=== PATIENT | female | born 1985 | race Caucasian/White ===

== ENCOUNTER 2017-03-25 13:16 | Emergency (ER) | payer OTHER ==
[~2017-03-25] VITALS: Ht 154.9 cm; Wt 70.3 kg
[2017-03-25 14:44] VITALS: BP 137/95
== END 2017-03-25 14:52 | disposition home or self-care (01) ==
LOC: M ED 14:25
DX: H65.01 Acute serous otitis media, right ear (principal); F17.210 Nicotine dependence, cigarettes, uncomplicated

== ENCOUNTER 2017-12-20 12:39 | Emergency (ER) | payer OTHER | END 2017-12-20 13:29 | disposition home or self-care (01) | LOC: M ED 12:39 | DX: J40 Bronchitis, not specified as acute or chronic (principal); J30.89 Other allergic rhinitis; Z97.5 Presence of (intrauterine) contraceptive device; F17.210 Nicotine dependence, cigarettes, uncomplicated | CPT/HCPCS: 99282 ==

== ENCOUNTER → 2020-07-27 | Outpatient (REF) | payer OTHER, SELFPAY ==
[~2020-07-27] MED LIST: CEFD1CAP8 PO; FLON1SPR; IBUPOTC PO; MIRE1IUD IU; NORT25CA2; PENI500T OR; ROBI30SU PO
== END ==
LOC: M SFHCWAGY 13:09
PROVIDERS: ATTEND Nurse Practitioner Women's Health
DX: Z12.4 Encounter for screening for malignant neoplasm of cervix (principal)
CPT/HCPCS: 87624; G0123

== ENCOUNTER → 2021-03-02 | Outpatient (REF) | payer BC | LOC: M SFHCPLAZ 12:40 | PROVIDERS: ATTEND Family Medicine | DX: Z13.1 Encounter for screening for diabetes mellitus (principal); Z53.8 Procedure and treatment not carried out for other reasons ==

== ENCOUNTER → 2021-04-04 | Outpatient (REF) | payer BC | LOC: M SFHCPLAZ 08:39 | PROVIDERS: ATTEND Family Medicine | DX: Z13.1 Encounter for screening for diabetes mellitus (principal); Z79.899 Other long term (current) drug therapy ==

== ENCOUNTER → 2021-04-24 | Outpatient (REF) | payer BC | LOC: M SFHCPLAZ 13:59 | PROVIDERS: ATTEND Family Medicine | DX: R10.12 Left upper quadrant pain (principal) ==

== ENCOUNTER → 2021-04-25 | Outpatient (REF) | payer BC ==
[2021-04-25 11:13] LABS: BLOOD UREA NITROGEN 7 MG/DL (7-18); CREATININE FOR GFR 0.63 MG/DL (0.55-1.30); GLUCOSE, FASTING 109 MG/DL (70-100)
[2021-04-25 11:14] LABS: ALT/SGPT 46 U/L (12-78); BILIRUBIN,TOTAL 0.4 MG/DL (0.2-1.0); CALCIUM LEVEL 9.1 MG/DL (8.5-10.1); CARBON DIOXIDE LEVEL 27 MEQ/L (21-32); CHLORIDE LEVEL 109 MEQ/L (98-107); GLOMERULAR FILTRATION RATE > 60.0 (>60); LIPASE 195 U/L (73-393); POTASSIUM SERUM 4.4 MEQ/L (3.5-5.1); SODIUM LEVEL 139 MEQ/L (136-145); TOTAL PROTEIN 7.4 GM/DL (6.4-8.2)
[2021-04-25 12:00] LABS: H PYLORI QUALITATIVE IgG NEGATIVE (NEGATIVE)
== END ==
LOC: M SFHCPLAZ 08:51
PROVIDERS: ATTEND Family Medicine
DX: R10.12 Left upper quadrant pain (principal)

== ENCOUNTER 2021-05-30 14:03 | Emergency (ER) | payer BC ==
[~2021-05-30] VITALS: Ht 154.9 cm; Wt 75.4 kg
[~2021-05-30 14:03] MED LIST changes: -OMEP-221 PO; -SUCR1TAB56 PO
[2021-05-30] MEDS ORDERED: SUCR1TAB56 PO (14:11)
[2021-05-30] MEDS ORDERED: OMEP-221 PO (14:11)
[2021-05-30 16:15] LABS: BASO # 0.1 10^3/uL (0.0-0.2); BASO % 0.5 % (0.0-1.0); EOS # 0.3 10^3/uL (0.0-0.5); EOS % 2.7 % (0.0-3.0); HEMATOCRIT 46.6 % (36.0-47.0); HEMOGLOBIN 15.9 g/dl (12.0-15.5); LYMPH # 2.4 10^3/uL (1.5-5.0); MEAN CORPUSCULAR HEMOGLOBIN 32.5 pg (27.0-33.0); MEAN CORPUSCULAR HGB CONC 34.1 g/dl (32.0-36.5); MEAN CORPUSCULAR VOLUME 95.3 fl (80.0-96.0); MONO # 0.6 10^3/uL (0.0-0.8); MONO % 5.3 % (2.0-8.0); NEUTROPHILS # 8.6 10^3/uL (1.5-8.5); NEUTROPHILS % 71.1 % (36.0-66.0); PLATELET COUNT, AUTOMATED 257 10^3/uL (150-450); RED BLOOD COUNT 4.89 10^6/uL (4.00-5.40)
[2021-05-30] MEDS ORDERED: DICYCLOMINE 10 MG CAP PO ONE (16:30)
[2021-05-30] MEDS ORDERED: ISOVUE-370 76% 100ML VIAL As Ordered ONE (16:32)
[2021-05-30 16:35] LABS: ALBUMIN 4.4 GM/DL (3.2-5.2); BILIRUBIN,DIRECT 0.1 MG/DL (0.0-0.2); BILIRUBIN,TOTAL 0.4 MG/DL (0.2-1.0); TOTAL PROTEIN 7.8 GM/DL (6.4-8.2)
--- NOTE | 2021-05-30 17:03 | REP ---
INDICATION: upper abd pain x months, no change with meds. COMPARISON: 07/23/2015 TECHNIQUE: Bolus of 100 mL Isovue 370 scanning through the abdomen and pelvis with both coronal and sagittal reconstructions. FINDINGS: CT abdomen: The lung bases are well inflated and clear. Heart size not enlarged. There is no pericardial effusion or thickening. There is no hiatal hernia. The liver is not enlarged but has an elongated left lobe crossing to the left lateral abdominal wall covering the superior pole of the spleen. No intrahepatic biliary dilatation or focal hepatic mass. Gallbladder shows no calcified stone or mass. Pancreas without mass, ductal dilatation, abnormal calcification, peripancreatic fluid or adenopathy. No splenomegaly or focal splenic lesion. Adrenal glands are normal. Kidneys show symmetric enhancement and are without mass, stone, hydronephrosis or hydroureter there is no pathologic periaortic, other retroperitoneal or mesenteric lymphadenopathy with scattered normal size nodes in the usual distribution. Abdominal portion of the colon shows no sign of colitis, diverticulitis, stricture or mass appendix is seen and normal. There is no ventral hernia. Umbilical jewelry noted small bowel loops in the abdomen and pelvis were unremarkable lung window review of all CT slices shows no perforation or free air of the bone windows demonstrate minor thoracic spondylosis without acute finding in the spine or the posterior elements. Lower ribs were intact. CT pelvis: The bony sacrum shows no discrete finding. 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 Remainder of the iliac bones acetabulae, ischia and hips are unremarkable. The distal left colon, sigmoid and rectum show collapse. Wall thickening could be considered but I do not see inflammatory change in the pericolonic fat that would define colitis. No sign of diverticulosis or diverticulitis. Uterus anteverted and not enlarged. There is an IUD within it centrally. No pelvic mass or adenopathy. No pelvic mass with symmetric adnexa. Small bowel loops in the pelvis were unremarkable to the ileocecal valve. No pelvic or inguinal lymphadenopathy. No ventral or inguinal hernia. Bladder shows no wall thickening, mass or stone and there is no distal ureteral dilatation or stone. IMPRESSION: 1. No CT evidence of abnormalities of the solid organs of the upper abdomen with the gallbladder and stomach also unremarkable. Small bowel loops intact throughout. 2. Abdominal portions of the colon unremarkable with the distal left colon and sigmoid collapsed. Wall thickness difficult to profile trimmer. However there is no inflammatory change in the pericolonic fat that would suggest colitis at this time. There is no diverticulosis or diverticulitis. Appendix normal. 3. No abdominal or pelvic pathologic sized lymphadenopathy. 4. No renal, ureteral or bladder stone or hydronephrosis. 5. IUD in place in the pelvis. Symmetric adnexa. Bones intact. No acute finding. <Electronically signed by Murali Calix > 05/30/21 [id number]
[2021-05-30 18:43] VITALS: BP 132/78
== END 2021-05-30 18:45 | disposition home or self-care (01) ==
LOC: M ED 14:03
DX: R10.9 Unspecified abdominal pain (principal); Z79.899 Other long term (current) drug therapy; F17.210 Nicotine dependence, cigarettes, uncomplicated
CPT/HCPCS: 36415; 74177; 80047; 80076; 83690; 84702; 85025; 99284; Q9967

== ENCOUNTER → 2021-05-30 | Outpatient (REF) | payer BC ==
[~2021-05-30] MED LIST changes: +OMEP-221 PO; +SUCR1TAB56 PO
== END ==
LOC: M SFHCPLAZ 13:06
PROVIDERS: ATTEND Student in an Organized Health Care Education/Training Program
DX: R10.84 Generalized abdominal pain (principal)

== ENCOUNTER 2021-06-03 22:10 | Observation (INO) | payer BC ==
[~2021-06-03] VITALS: Ht 154.9 cm; Wt 72.7 kg
[~2021-06-03 22:10] MED LIST changes: +OMEP-221 PO; +SUCR1TAB56 PO
[2021-06-03 22:52] LABS: BASO # 0.1 10^3/uL (0.0-0.2); BASO % 0.4 % (0.0-1.0); EOS # 0.6 10^3/uL (0.0-0.5); EOS % 5.1 % (0.0-3.0); HEMATOCRIT 45.3 % (36.0-47.0); HEMOGLOBIN 15.1 g/dl (12.0-15.5); LYMPH # 2.8 10^3/uL (1.5-5.0); LYMPH % 24.4 % (24.0-44.0); MEAN CORPUSCULAR HEMOGLOBIN 32.2 pg (27.0-33.0); MEAN CORPUSCULAR HGB CONC 33.3 g/dl (32.0-36.5); MEAN CORPUSCULAR VOLUME 96.6 fl (80.0-96.0); MONO # 0.7 10^3/uL (0.0-0.8); MONO % 5.8 % (2.0-8.0); NEUTROPHILS # 7.4 10^3/uL (1.5-8.5); PLATELET COUNT, AUTOMATED 242 10^3/uL (150-450); RED BLOOD COUNT 4.69 10^6/uL (4.00-5.40); WHITE BLOOD COUNT 11.6 10^3/uL (4.0-10.0)
[2021-06-03 23:03] LABS: INR 0.84; PROTHROMBIN TIME 11.7 SECONDS (12.5-14.3)
[2021-06-03 23:04] LABS: PARTIAL THROMBOPLASTIN TIME 31.8 SECONDS (24.2-38.5)
[2021-06-03 23:18] LABS: CK-MB VALUE MASS < 1.0 NG/ML (<3.6); CPK CREATINE PHOSPHOKINASE 46 U/L (26-192); MB/CK RELATIVE INDEX 2.17 (< OR =4); TROPONIN I < 0.02 NG/ML (< 0.10)
[2021-06-03 23:24] LABS: HCG, SERUM QUALITATIVE NEGATIVE (NEGATIVE)
--- NOTE | 2021-06-03 23:36 | REPVR ---
PROCEDURE INFORMATION: Exam: CT Head Without Contrast Exam date and time: 06/03/2021 11:29 PM Age: 36 years old Clinical indication: Weakness, extremity; Left; Additional info: Neuro symptoms TECHNIQUE: Imaging protocol: Computed tomography of the head without contrast. Radiation optimization: All CT scans at this facility use at least one of these dose optimization techniques: automated exposure control; mA and/or kV adjustment per patient size (includes targeted exams where dose is matched to clinical indication); or iterative reconstruction. Other technique: STROKE PROTOCOL was implemented. COMPARISON: No relevant prior studies available. FINDINGS: Brain: No intracranial mass, mass effect or midline shift. No acute intracranial hemorrhage. No CT evidence of acute cortical infarct. Ventricles, cisterns, and sulci are normal in size for age. Paranasal sinuses: Imaged paranasal sinuses are normally aerated. Mastoid air cells: Mastoid air cells and middle ear structures are normally aerated. Orbital cavity: Imaged orbits are unremarkable. Bones/joints: No calvarial fracture or destructive process. Soft tissues: No focal extracranial soft tissue swelling. IMPRESSION: No acute or concerning focal intracranial abnormality. ASSESSMENT: ASPECTS ([place] Stroke Program Early CT Score) is 10. Electronically signed by: Rod Etienne On 06/03/2021 23:36:35 PM
[2021-06-03 23:46] LABS: ALBUMIN 4.1 GM/DL (3.2-5.2); ALT/SGPT 46 U/L (12-78); BILIRUBIN,DIRECT < 0.1 MG/DL (0.0-0.2); BILIRUBIN,TOTAL 0.2 MG/DL (0.2-1.0); BLOOD UREA NITROGEN 9 MG/DL (7-18); CALCIUM LEVEL 8.9 MG/DL (8.5-10.1); CARBON DIOXIDE LEVEL 24 MEQ/L (21-32); CHLORIDE LEVEL 109 MEQ/L (98-107); FREE T4 0.84 NG/DL (0.76-1.46); GLOMERULAR FILTRATION RATE > 60.0 (>60); GLUCOSE, FASTING 124 MG/DL (70-100); POTASSIUM SERUM 3.9 MEQ/L (3.5-5.1); SODIUM LEVEL 141 MEQ/L (136-145); TOTAL PROTEIN 7.5 GM/DL (6.4-8.2)
--- NOTE | 2021-06-04 00:09 | REPVR ---
PROCEDURE INFORMATION: Exam: XR Chest Exam date and time: 06/03/2021 11:54 PM Age: 36 years old Clinical indication: Other: CVA TECHNIQUE: Imaging protocol: XR of the chest. Views: 1 view. COMPARISON: CT ABD/PEL W/IV CONTRAST ONLY 05/30/2021 4:35 PM FINDINGS: Lungs: Degree of lung inflation is normal. No evidence of pulmonary edema. No focal consolidation or parenchymal lung mass. Pleural spaces: No pleural effusion or pneumothorax. Heart/Mediastinum: Cardiac silhouette appears normal. No adenopathy or hilar mass. Bones/joints: Osseous structures show no concerning abnormality. IMPRESSION: No acute or focal cardiopulmonary process. Electronically signed by: Rod Etienne On 06/04/2021 00:09:20 AM
[2021-06-04] MEDS ORDERED: ASPIRIN 325 MG TAB PO ONE (00:20)
[2021-06-04] MEDS ORDERED: IBUPROFEN 400MG TAB PO SCH (00:30)
[2021-06-04] MEDS ORDERED: ACETAMINOPHEN TAB 650MG DOSE (2X325MG) PO PRN (00:30)
[2021-06-04] MEDS ORDERED: METOCLOPRAMIDE INJ 10MG/2ML VIAL (J2765 PER 1) IV PRN (00:30)
[2021-06-04] MEDS ORDERED: HOME MED LIST COMPLETE! XX SCH (01:00)
[2021-06-04] MEDS ORDERED: METOCLOPRAMIDE INJ 10MG/2ML VIAL (J2765 PER 1) IV ONE (01:15)
[2021-06-04] MEDS ORDERED: KETOROLAC 30 MG/ML 1ML VIAL IV ONE (01:15)
[2021-06-04] MEDS ORDERED: ACETAMINOPHEN 500 MG TAB PO ONE (01:15)
--- NOTE | 2021-06-04 01:30 | HPEPDOC ---
[facility] Medical History & Physical Date of Admission Jun 04, 2021 Date of Service: Jun 04, 2021 History and Physical CHIEF COMPLAINT: Left arm numbness at 9:00 PM HISTORY OF PRESENT ILLNESS: 36-year-old female was in her usual state of health with past medical history significant for chronic migraines with daily symptoms presents to the emergency room with acute onset of left arm numbness that started at 9 PM while she was sitting on the couch watching television this then progressed onto whole body with numbness, tingling, and weakness, unable to ambulate. She called her mother at 9:45 PM. According to the mother, patient had no expressive or receptive aphasia. She was able to speak in full sentences. EMS was called. Patient had persistent symptoms until around midnight. Glucose was normal. CT of the head in the emergency room was negative. Patient was given aspirin 325 mg patient. She denied a URA, nausea, vomiting but says that the light bothers her eyes without fever chills or neck rigidity. She admits to having chronic migraines most days of the week and has previously seen Dr. Arce at [facility] neurology but stopped going about 4 years ago because "nothing worked". patient says that she often gets relief from extra strength Tylenol and previously took Excedrin Migraine but she is concerned about her gastritis and had stopped taking the Excedrin Migraine as needed. While in the emergency room patient symptoms improved. Systolic blood pressure at the bedside was 146-173 mmHg. Patient's mother says she has been under a lot of stress since she has had a strained relationship with her ex-, her son's father, who is living in [place]. MRI of the brain has been ordered. She has had no prior episode of these neurological symptoms in the past. She denies any chest pain pressure tightness lightheadedness dizziness and was able to transfer from bed to wheelchair for all her tests in the ER. Patient was given IV Toradol IV Reglan for migraine and acetaminophen hospitalist was asked to admit the patient for observation for possible complex migraine versus transient ischemic attack. PAST MEDICAL/SURGICAL HISTORY: Headache, gastroesophageal reflux disease, torn right meniscus with repair, cervicitis with barholin cyst SOCIAL HISTORY: Single has a son ex- lives in [place]. Full code denies recreational drug use social alcohol no cigarette use FAMILY HISTORY: Paternal grandparents with diabetes Mother father alive and well healthy no medical problems ALLERGIES: Please see below. REVIEW OF SYSTEMS: 10 point review of systems negative aside from positive findings in HPI HOME MEDICATIONS: Please see below. PHYSICAL EXAMINATION: VITAL SIGNS: See below GENERAL APPEARANCE: Anxious and tearful awake alert oriented x3 no distress no icterus pallor jaundice cyanosis or respiratory distress HEENT: Pupils equally round reactive to light accommodation extraocular muscles are intact normocephalic atraumatic face is symmetric tongue is midline moist mucous membranes no carotid bruit stridor cervical lymphadenopathy or thyromega ly no JVD CARDIOVASCULAR: S1-S2 regular rate rhythm no murmurs rubs or gallops LUNGS: No kyphosis no scoliosis air entry is equal bilaterally no adventitious breath sounds clear to auscultation bilaterally no use of respiratory accessory muscles or conversational dyspnea trachea is midline no stridor ABDOMEN: Positive normoactive bowel sounds soft nontender nondistended no rebound or guarding EXTREMITIES: No cyanosis clubbing or pitting edema NEUROLOGIC: Face is symmetric tongue is midline speech is fluent no receptive or expressive aphasia uvula is midline motor function is 5 out of 5 x 4 extremities no pronator drift no dysmetria on [id number] testing no sensory disturbance negative Babinski bilaterally gait was not tested stroke scale 0 LABORATORY DATA: See below. IMAGING: See below MICROBIOLOGY: Please see below. ASSESSMENT: 36-year-old female with history of chronic headache previously seen at [facility] neurology but lost to follow-up for about 4 years presents with acute onset of left arm numbness which progressed to the whole body with tingling sensation at around 9 PM with difficulty ambulating. Symptoms improved in the emergency room where she also complained of headache and slight photophobia without fever or chills glucose was normal on arrival CT head was negative patient was given aspirin 325 hospitalist was asked to admit the patient for possible complex migraine versus transient ischemic attack for observation. TIA versus complex migraine -Patient was given aspirin 325x1 . check fasting lipid profile in the morning MRI/MRA of the brain ordered -Dr. DUNBAR ER provider had spoken with Dr. SYED who recommended observation overnight and MRI of the brain -Neurochecks every 4 for 12 hours Migraine -Patient was given IV Reglan IV Toradol and acetaminophen Hypertension, uncontrolled Secondary to headache Patient is being treated for migraines with IV Reglan Toradol and acetaminophen Patient has had increasing stressors especially her personal relationship with her ex- which the mother says has caused her blood pressure to increase at home If persistently elevated may need antihypertensive meds Gastroesophageal reflux disease Resume Prilosec and Carafate Diet 2 g sodium Obesity Check A1c TSH and lipid panel DVT prophylaxis compression stockings Vital Signs Vital Signs Date Time Temp Pulse Resp B/P (MAP) Pulse Ox O2 Delivery O2 Flow Rate FiO2 06/03/21 23:27 97.4 20 98 Room Air 06/03/21 23:00 172/94 (120) 06/03/21 22:55 83 Laboratory Data Labs 24H Laboratory Tests 2 06/03/21 22:36: Immature Granulocyte % (Auto) 0.3, Neutrophils (%) (Auto) 64.0, Lymphocytes (%) (Auto) 24.4, Monocytes (%) (Auto) 5.8, Eosinophils (%) (Auto) 5.1H, Basophils (%) (Auto) 0.4, Neutrophils # (Auto) 7.4, Lymphocytes # (Auto) 2.8, Monocytes # (Auto) 0.7, Eosinophils # (Auto) 0.6H, Basophils # (Auto) 0.1, Nucleated Red Blood Cells % (auto) 0.0, Prothrombin Time 11.7L, Prothromb Time International Ratio 0.84, Activated Partial Thromboplast Time 31.8, Anion Gap 8, Glomerular Filtration Rate > 60.0, Calcium Level 8.9, Total Bilirubin 0.2, Direct Bilirubin < 0.1, Aspartate Amino Transf (AST/SGOT) 31, Alanine Aminotransferase (ALT/SGPT) 46, Alkaline Phosphatase 68, Total Creatine Kinase 46, Creatine Kinase MB < 1.0, Creatine Kinase MB Relative Index 2.17, Troponin I < 0.02, Total Protein 7.5, Albumin 4.1, Albumin/Globulin Ratio 1.2, Thyroid Stimulating Hormone (TSH) 5.480H, Free Thyroxine 0.84, Human Chorionic Gonadotropin, Qual NEGATIVE 06/03/21 22:48: POC Glucose (Misc Panel) 126H, POC Sodium (Misc Panel) 142, POC Potassium (Misc Panel) 3.7, POC Chloride (Misc Panel) 105, POC Total CO2 (Misc Panel) 23.0, POC Blood Urea Nitrogen (Misc Panel 9, POC Ionized Calcium (Misc Panel) 4.7, POC Creatinine (Misc Panel) 0.7, POC Hematocrit (Misc Panel) 47.0 CBC/BMP Laboratory Tests 06/03/21 22:36 Home Medications Scheduled Omeprazole (Omeprazole) 40 Mg Capsule.dr, 40 MG PO DAILY Sucralfate (Sucralfate) 1 Gm Tablet, 1 GM PO QID Miscellaneous Medications Levonorgestrel (Mirena) 20 Mcg/24 Hr Iud, 20 MCG IU Allergies Coded Allergies: No Known Drug Allergies (Verified Allergy, Unknown, 05/30/21) SEASONAL ALLERGIES (Verified Allergy, Unknown, 02/17/18) A-FIB/CHADSVASC A-FIB History Current/History of A-Fib/PAF?: No Current PO Anticoag Therapy: No Age/Risk Factor Scoring CHADSVASC: CHADSVASC Response (Comments) Value Age Risk Factor Age < 65 years old 0 Gender Risk Factor Female 1 Hx of CHF No 0 Hx of Stroke/TIA/or VTE No 0 Hx of Diabetes No 0 Hx of Vascular Disease No 0 Total 1 Treatment Treatment ordered: NONE NICOLAS HARVEY MD Jun 04, 2021 01:30
[2021-06-04 02:47] LABS: RSV AMPLIFICATION NEGATIVE (NEGATIVE)
[2021-06-04] MEDS ORDERED: KETOROLAC 30 MG/ML 1ML VIAL IV PRN (07:00)
[2021-06-04] MEDS ORDERED: SUCRALFATE 1 GM TAB PO SCH (07:30)
[2021-06-04 08:27] LABS: CHOLESTEROL RISK RATIO 6.552 (<5)
[2021-06-04] MEDS ORDERED: OMEPRAZOLE 20 MG CAP PO SCH (09:00)
--- NOTE | 2021-06-04 10:23 | REPVR ---
PROCEDURE INFORMATION: Exam: MRA Head Without Contrast; Arteriography Exam date and time: 06/04/2021 7:58 AM Age: 36 years old Clinical indication: Weakness; Additional info: CVA TECHNIQUE: Imaging protocol: Magnetic resonance angiography head without contrast. Exam focused on the arteries. COMPARISON: CT Head without contrast 06/03/2021 11:06 PM FINDINGS: ANTERIOR CIRCULATION: Right internal carotid artery: Intracranial segment is patent with no significant stenosis. No aneurysm. Right middle cerebral artery: No occlusion or significant stenosis. No aneurysm. Right anterior cerebral artery: No occlusion or significant stenosis. No aneurysm. Left internal carotid artery: Intracranial segment is patent with no significant stenosis. No aneurysm. Left middle cerebral artery: No occlusion or significant stenosis. No aneurysm. Left anterior cerebral artery: No occlusion or significant stenosis. No aneurysm. POSTERIOR CIRCULATION: Right vertebral artery: No occlusion or significant stenosis. No aneurysm. Left vertebral artery: No occlusion or significant stenosis. No aneurysm. Basilar artery: No occlusion or significant stenosis. No aneurysm. Right posterior cerebral artery: No occlusion or significant stenosis. No aneurysm. Left posterior cerebral artery: No occlusion or significant stenosis. No aneurysm. IMPRESSION: No stenosis or occlusion. Electronically signed by: Fernandez Jiménez On 06/04/2021 08:33:07 AM
--- NOTE | 2021-06-04 10:23 | REPVR ---
PROCEDURE INFORMATION: Exam: MR Head Without Contrast Exam date and time: 06/04/2021 7:58 AM Age: 36 years old Clinical indication: Numbness / parasthesia; Bilateral; Patient HX: Body numbness; Additional info: CVA TECHNIQUE: Imaging protocol: MR of the head without contrast. COMPARISON: CT Head without contrast 06/03/2021 11:06 PM FINDINGS: Brain: Normal. No acute infarct. No hemorrhage. No significant white matter disease. No edema. Cerebral ventricles: Normal. No ventriculomegaly. Bones/joints: Unremarkable. Paranasal sinuses: Limited paranasal sinus disease without air-fluid levels. Mastoid air cells: Normal as visualized. No mastoid effusion. Orbital cavity: Unremarkable. Soft tissues: Unremarkable. IMPRESSION: No acute intracranial abnormality. Electronically signed by: Fernandez Jiménez On 06/04/2021 08:35:51 AM
--- NOTE | 2021-06-04 10:24 | DS.PDOC ---
Discharge Summary General Date of Admission Jun 03, 2021 at 22:11 Date of Discharge 06/04/21 Attending Physician: JORGE CARMONA DO Discharge Summary PROCEDURES PERFORMED DURING STAY: N/A ADMITTING DIAGNOSES: 1. Complex migraine vs TIA DISCHARGE DIAGNOSES: 1. Complex migraine COMPLICATIONS/CHIEF COMPLAINT: generalized numbness/tingling and weakness HISTORY OF PRESENT ILLNESS: Yael is 36F w/ PMH chronic migraines who presented to ED by EMS 06/03/21 w/ acute onset generalized numbness/tingling that began in her LUE and quickly progressed throughout her body. Reported photoph obia w/out fevers/chills, n/v, neck rigidity. She also had elevated BP (systolic 146-173) and significant weakness w/ difficulty ambulating. Reported new acute stressors at home. CXR and CT head performed in ED 06/03/21 unremarkable. Pt began IV Reglan, IV Toradol, Acetaminophen for migraine w/ significant improvement. Neuro exam unremarkable and neuro checks Q4-12hrs unconcerning. HOSPITAL COURSE: Admission order placed for obs. Pt reported resolution of sx, including elevated BP, prior to transfer to floor. MRI brain performed 06/04/21 unremarkable. Lipid profile significant for total cholesterol 249, LDL 188. DISCHARGE MEDICATIONS: Please see below. ALLERGIES: Please see below. PHYSICAL EXAMINATION ON DISCHARGE: VITAL SIGNS: Please see below. GENERAL: no acute distress, sitting up in bed HEENT: AC/NT, EOMI, PERRLA, moist mucous membranes, nares patent NECK: supple, no JVD CARDIOVASCULAR EXAMINATION: normal heart sounds, RRR, no M/R/G RESPIRATORY EXAMINATION: CTA b/l, no W/R/R ABDOMINAL EXAMINATION: soft, nontender, hypoactive BS EXTREMITIES: no edema, normal ROM SKIN: no rashes, abrasions, lesions NEUROLOGICAL EXAMINATION: CNIII-XII intact, no FND, motor strength 5/5 PSYCHIATRIC EXAMINATION: AOx3, appropriate mood/affect LABORATORY DATA: Please see below. IMAGING: CXR 06/03/21- No acute or focal cardiopulmonary process. CT head 06/03/21- No acute or concerning focal intracranial abnormality. MRI brain 06/04/21- No acute intracranial abnormality. MRA brain 06/04/2021-no stenosis or occlusion PROGNOSIS: good ACTIVITY: As tolerated DIET: As tolerated, low cholesterol DISCHARGE PLAN: Complex migraine F/u PCP, 7-10 days F/u neurology, 2wks Tobacco abuse Pt counseled on importance of tobacco cessation Elevated triglycerides Pt counseled on importance of lifestyle modifications, given current risk factors. Pt agreeable and verbalized understanding. ASCVD risk 8.7% DISPOSITION: home DISCHARGE INSTRUCTIONS: 1. F/u w/ PCP, 7-10 days 2. F/u w/ neurology, 2wks 3. Lifestyle modifications as discussed DISCHARGE CONDITION: Stable TIME SPENT ON DISCHARGE: 20 minutes I, Jorge Carmona DO, have independently examined this patient and performed my own physical exam, as well as reviewed the documentation and edited where necessary. I have discussed in detail with the resident / student the findings and plan of treatment as documented by the resident / student and edited their note. I agree with their findings and treatment plan and have edited their documentation. I will continue to follow the patient during this hospital stay. Vital Signs/I&Os Vital Signs Date Time Temp Pulse Resp B/P (MAP) Pulse Ox O2 Delivery O2 Flow Rate FiO2 06/04/21 06:00 63 18 138/71 (93) 94 Room Air 06/03/21 23:27 97.4 Laboratory Data Labs 24H Laboratory Tests 2 06/03/21 22:36: Immature Granulocyte % (Auto) 0.3, Neutrophils (%) (Auto) 64.0, Lymphocytes (%) (Auto) 24.4, Monocytes (%) (Auto) 5.8, Eosinophils (%) (Auto) 5.1H, Basophils (%) (Auto) 0.4, Neutrophils # (Auto) 7.4, Lymphocytes # (Auto) 2.8, Monocytes # (Auto) 0.7, Eosinophils # (Auto) 0.6H, Basophils # (Auto) 0.1, Nucleated Red Blood Cells % (auto) 0.0, Prothrombin Time 11.7L, Prothromb Time International Ratio 0.84, Activated Partial Thromboplast Time 31.8, Anion Gap 8, Glomerular Filtration Rate > 60.0, Calcium Level 8.9, Total Bilirubin 0.2, Direct Bilirubin < 0.1, Aspartate Amino Transf (AST/SGOT) 31, Alanine Aminotransferase (ALT/SGPT) 46, Alkaline Phosphatase 68, Total Creatine Kinase 46, Creatine Kinase MB < 1.0, Creatine Kinase MB Relative Index 2.17, Troponin I < 0.02, Total Protein 7.5, Albumin 4.1, Albumin/Globulin Ratio 1.2, Thyroid Stimulating Hormone (TSH) 5.480H, Free Thyroxine 0.84, Human Chorionic Gonadotropin, Qual NEGATIVE 06/03/21 22:48: POC Glucose (Misc Panel) 126H, POC Sodium (Misc Panel) 142, POC Potassium (Misc Panel) 3.7, POC Chloride (Misc Panel) 105, POC Total CO2 (Misc Panel) 23.0, POC Blood Urea Nitrogen (Misc Panel 9, POC Ionized Calcium (Misc Panel) 4.7, POC Creatinine (Misc Panel) 0.7, POC Hematocrit (Misc Panel) 47.0 06/04/21 02:02: Coronavirus (COVID-19)(PCR) NEGATIVE, Influenza Type A (RT-PCR) NEGATIVE, Influenza Type B (RT-PCR) NEGATIVE, Respiratory Syncytial Virus (PCR) NEGATIVE 06/04/21 07:47: Triglycerides Level 117, Total Cholesterol 249H, LDL Cholesterol 188H, Non-HDL Cholesterol (LDL + VLDL) 211, Total HDL Cholesterol 38L, Cholesterol/HDL Ratio 6.552H CBC/BMP Laboratory Tests 06/03/21 22:36 Discharge Medications Scheduled Omeprazole (Omeprazole) 40 Mg Capsule.dr, 40 MG PO DAILY, (Reported) Sucralfate (Sucralfate) 1 Gm Tablet, 1 GM PO QID, (Reported) Miscellaneous Medications Levonorgestrel (Mirena) 20 Mcg/24 Hr Iud, 20 MCG IU, (Reported) Allergies Coded Allergies: No Known Drug Allergies (Verified Allergy, Unknown, 05/30/21) SEASONAL ALLERGIES (Verified Allergy, Unknown, 02/17/18) Rebeka Grant DO Jun 04, 2021 10:24 JORGE CARMONA DO Jun 04, 2021 18:19
[2021-06-04 10:47] LABS: HEMOGLOBIN A1c 5.3 %
[2021-06-04 11:48] VITALS: BP 145/90
--- NOTE | 2021-06-04 20:32 | ECGEPIP ---
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
== END 2021-06-04 12:22 | disposition home or self-care (01) ==
LOC: M ED 22:10 → M ED INP 22:11 → ENRESERV 06-04 06:06
PROVIDERS: ADMIT General Practice; ATTEND Family Medicine
DX: G43.809 Other migraine, not intractable, without status migrainosus (principal); R03.0 Elevated blood-pressure reading, without diagnosis of hypertension; E78.1 Pure hyperglyceridemia; G43.709 Chronic migraine without aura, not intractable, without status migrainosus; K21.9 Gastro-esophageal reflux disease without esophagitis; Z63.5 Disruption of family by separation and divorce; E66.9 Obesity, unspecified; F17.210 Nicotine dependence, cigarettes, uncomplicated; Z79.899 Other long term (current) drug therapy; J30.1 Allergic rhinitis due to pollen
CPT/HCPCS: 36415; 70450; 70544; 70551; 71045; 80047; 80048; 80061; 80076; 82550; 82553; 83036; 84439; 84443; 84484; 84703; 85025; 85610; 85730; 87631; 93005; 93041; 94760; 96374; 96375; 99285; J1885; J2765

== ENCOUNTER → 2021-07-13 | Outpatient (CLI) | payer BC ==
--- NOTE | 2021-07-13 09:40 | REP ---
INDICATION: RUQ PAIN COMPARISON: None. TECHNIQUE: Real time estrada scale ultrasound examination using curved array transducer. FINDINGS: Liver is normal in contour, size, and echogenicity without focal hepatic lesions identified. Pancreas is incompletely evaluated due to interposed bowel gas. The gallbladder is normal and without gallstones, wall thickening, or pericholecystic fluid. No biliary ductal dilatation is appreciated and the common bile duct measures 4.0 mm diameter. Right kidney is normal in reniform shape without hydronephrosis and measures 11.3 x 5.9 x 4.6 cm. No ascites in the visualized right upper quadrant. IMPRESSION: Normal limited right upper quadrant ultrasound <Electronically signed by Calin Jean Baptiste > 07/13/21 [id number]
== END ==
LOC: M RAD 09:01
PROVIDERS: ATTEND Student in an Organized Health Care Education/Training Program
DX: R10.11 Right upper quadrant pain (principal)

== ENCOUNTER → 2021-10-22 | Outpatient (CLI) | payer BC ==
[~2021-10-22] MED LIST changes: -CEFD1CAP8 PO; +CEFD300C41 PO; +HYOS0.374; -OMEP-221 PO; +OMEP40CA5 PO; +ZYRTTAB8 PO
== END ==
LOC: M LABSMTC 10:40
PROVIDERS: ATTEND Anesthesiology
DX: Z01.818 Encounter for other preprocedural examination (principal); Z11.52 Encounter for screening for COVID-19

== ENCOUNTER 2021-10-26 12:52 | Day surgery (SDC) | payer BC ==
[~2021-10-26] VITALS: Ht 154.9 cm; Wt 75.7 kg
[~2021-10-26 12:52] MED LIST changes: +CEFD1CAP8 PO; -CEFD300C41 PO; +OMEP-221 PO; -OMEP40CA5 PO
[2021-10-26] MEDS: NS 1,000 ML IV ONE (13:12)
[2021-10-26] MEDS ORDERED: METOPROLOL 5 MG/5 ML VIAL As Ordered ONE (14:54)
--- NOTE | 2021-10-26 15:04 | ROOR ---
Patient Name: Yael Obregon Procedure Date: 10/26/2021 2:49 PM Date of : 1985 Age: 36 Room: [facility] Gender: Female Note Status: Finalized Procedure: Upper GI endoscopy Indications: Epigastric abdominal pain, Abdominal bloating Providers: Elijah Hayden MD Referring MD: Mihir Mcmullen Do Requestann Provider: Medicines: Monitored Anesthesia Care Complications: No immediate complications. Procedure: Pre-Anesthesia Assessment: - The heart rate, respiratory rate, oxygen saturations, blood pressure, adequacy of pulmonary ventilation, and response to care were monitored throughout the procedure. The Endoscope was introduced through the mouth, and advanced to the second part of duodenum. The upper GI endoscopy was accomplished without difficulty. The patient tolerated the procedure well. Findings: The esophagus was normal. The stomach was normal. The examined duodenum was normal. Biopsies were taken with a cold forceps in the gastric antrum for histology and Helicobacter pylori testing. Biopsies for histology were taken with a cold forceps in the second portion of the duodenum and in the third portion of the duodenum for evaluation of celiac disease. Impression: - Normal esophagus. - Normal stomach. - Normal examined duodenum. - Biopsies were taken with a cold forceps for histology and Helicobacter pylori testing. - Biopsies were taken with a cold forceps for evaluation of celiac disease. Recommendation: - Telephone endoscopist for pathology results in 2 weeks. - Observe patient's clinical course. - Continue present medications. Procedure Code(s): --- Professional --- 58201, Esophagogastroduodenoscopy, flexible, transoral; with biopsy, single or multiple Diagnosis Code(s): --- Professional --- R14.0, Abdominal distension (gaseous) R10.13, Epigastric pain CPT copyright 2019 [employer]. All rights reserved. The codes documented in this report are preliminary and upon in home baby sitter review may be revised to meet current compliance requirements. Elijah Hayden MD Elijah Hayden MD 10/26/2021 3:04:20 PM Electronically signed by Elijah Hayden MD Number of Addenda: 0 Note Initiated On: 10/26/2021 2:49 PM Estimated Blood Loss: Estimated blood loss: none.
[2021-10-26] MEDS ORDERED: LIDOCAINE 2% 100MG/5ML SDV (FOR ANES.) As Ordered ONE (15:14)
[2021-10-26] MEDS ORDERED: propofoL 200 MG/20 ML VIAL As Ordered ONE (15:14)
[2021-10-26 15:31] VITALS: BP 126/84
== END 2021-10-26 15:42 | disposition home or self-care (01) ==
LOC: M OPP 12:52
PROVIDERS: ATTEND Internal Medicine Gastroenterology
DX: R14.0 Abdominal distension (gaseous) (principal); R10.13 Epigastric pain; Z79.899 Other long term (current) drug therapy; Z88.1 Allergy status to other antibiotic agents; Z92.21 Personal history of antineoplastic chemotherapy; F17.210 Nicotine dependence, cigarettes, uncomplicated; Z80.42 Family history of malignant neoplasm of prostate

== ENCOUNTER → 2021-10-30 | Outpatient (REF) | payer BC | LOC: M SFHCPLAZ 14:16 | PROVIDERS: ATTEND Family Medicine | DX: Z53.20 Procedure and treatment not carried out because of patient's decision for unspecified reasons (principal) ==

== ENCOUNTER → 2021-10-30 | Outpatient (CLI) | payer BC | LOC: M PLALAB 14:24 | PROVIDERS: ATTEND Student in an Organized Health Care Education/Training Program | DX: R00.2 Palpitations (principal) ==

== ENCOUNTER 2021-12-04 21:33 | Emergency (ER) | payer BC ==
[~2021-12-04] VITALS: Ht 154.9 cm; Wt 75.0 kg
[~2021-12-04 21:33] MED LIST changes: -CEFD1CAP8 PO; +CEFD300C41 PO; -OMEP-221 PO; +OMEP40CA5 PO
[2021-12-04 21:35] VITALS: BP 183/104
== END 2021-12-05 00:32 | disposition left against medical advice (07) ==
LOC: M ED 21:33
DX: Z53.29 Procedure and treatment not carried out because of patient's decision for other reasons (principal)

== ENCOUNTER 2021-12-05 11:48 | Emergency (ER) | payer BC ==
[~2021-12-05] VITALS: Ht 154.9 cm; Wt 75.0 kg
[2021-12-05 12:43] LABS: HEMATOCRIT 44.3 % (36.0-47.0); HEMOGLOBIN 14.8 g/dl (12.0-15.5); MEAN CORPUSCULAR HEMOGLOBIN 31.4 pg (27.0-33.0); MEAN CORPUSCULAR HGB CONC 33.4 g/dl (32.0-36.5); MEAN CORPUSCULAR VOLUME 93.9 fl (80.0-96.0); PLATELET COUNT, AUTOMATED 253 10^3/uL (150-450); RED BLOOD COUNT 4.72 10^6/uL (4.00-5.40); WHITE BLOOD COUNT 9.9 10^3/uL (4.0-10.0)
[2021-12-05 13:10] LABS: HCG, SERUM QUALITATIVE NEGATIVE (NEGATIVE)
[2021-12-05 13:11] LABS: CK-MB VALUE MASS < 1.0 NG/ML (<3.6); CPK CREATINE PHOSPHOKINASE 40 U/L (26-192)
[2021-12-05 13:12] LABS: ATYPICAL LYMPH 4 % (0-5); EOSINOPHILS 1 % (0-3); LYMPHOCYTES 15 % (16-44); MONOCYTES 5 % (0-5); NEUTROPHILS 75 % (28-66)
[2021-12-05 13:13] LABS: PLATELET ESTIMATE NORMAL (NORMAL)
[2021-12-05 13:14] LABS: BLOOD UREA NITROGEN 7 MG/DL (7-18); CARBON DIOXIDE LEVEL 26 MEQ/L (21-32); CHLORIDE LEVEL 109 MEQ/L (98-107); CREATININE FOR GFR 0.67 MG/DL (0.55-1.30); GLOMERULAR FILTRATION RATE > 60.0 (>60); GLUCOSE, FASTING 100 MG/DL (70-100); POTASSIUM SERUM 4.1 MEQ/L (3.5-5.1); SODIUM LEVEL 139 MEQ/L (136-145)
[2021-12-05 13:15] LABS: ALBUMIN 4.1 GM/DL (3.2-5.2); ALT/SGPT 40 U/L (12-78); BILIRUBIN,DIRECT 0.1 MG/DL (0.0-0.2); BILIRUBIN,TOTAL 0.3 MG/DL (0.2-1.0); CALCIUM LEVEL 9.3 MG/DL (8.5-10.1); FREE T4 0.94 NG/DL (0.76-1.46); LIPASE 168 U/L (73-393); MAGNESIUM LEVEL 2.3 MG/DL (1.8-2.4); PHOSPHORUS LEVEL 2.4 MG/DL (2.5-4.9); TOTAL PROTEIN 7.6 GM/DL (6.4-8.2)
[2021-12-05] MEDS ORDERED: NS 1,000 ML IV ONE (14:10)
[2021-12-05 14:24] LABS: CK-MB VALUE MASS < 1.0 NG/ML (<3.6); CPK CREATINE PHOSPHOKINASE 68 U/L (26-192); MB/CK RELATIVE INDEX 1.47 (< OR =4)
[2021-12-05 15:30] VITALS: BP 116/71
== END 2021-12-05 16:49 | disposition home or self-care (01) ==
LOC: M ED 11:48
DX: R00.2 Palpitations (principal); R42 Dizziness and giddiness; F17.200 Nicotine dependence, unspecified, uncomplicated; Z88.2 Allergy status to sulfonamides; Z88.8 Allergy status to other drugs, medicaments and biological substances; Z79.899 Other long term (current) drug therapy

== ENCOUNTER → 2022-01-03 | Outpatient (CLI) | payer BC | LOC: M PLAIMG 09:47 | PROVIDERS: ATTEND Student in an Organized Health Care Education/Training Program | DX: M25.562 Pain in left knee (principal) ==

== ENCOUNTER → 2022-07-25 | Outpatient (CLI) | payer BC ==
[2022-07-25 11:11] LABS: BASO # 0.1 10^3/uL (0.0-0.2); BASO % 0.6 % (0.0-1.0); EOS # 0.6 10^3/uL (0.0-0.5); EOS % 4.8 % (0.0-3.0); HEMATOCRIT 45.7 % (36.0-47.0); HEMOGLOBIN 14.7 g/dl (12.0-15.5); LYMPH # 2.4 10^3/uL (1.5-5.0); MEAN CORPUSCULAR HEMOGLOBIN 31.1 pg (27.0-33.0); MEAN CORPUSCULAR HGB CONC 32.2 g/dl (32.0-36.5); MEAN CORPUSCULAR VOLUME 96.8 fl (80.0-96.0); MONO # 0.7 10^3/uL (0.0-0.8); MONO % 5.6 % (2.0-8.0); NEUTROPHILS # 8.4 10^3/uL (1.5-8.5); NEUTROPHILS % 68.7 % (36.0-66.0); PLATELET COUNT, AUTOMATED 258 10^3/uL (150-450); RED BLOOD COUNT 4.72 10^6/uL (4.00-5.40); WHITE BLOOD COUNT 12.2 10^3/uL (4.0-10.0)
[2022-07-25 12:05] LABS: ALBUMIN 3.9 GM/DL (3.2-5.2); ALT/SGPT 40 U/L (12-78); BILIRUBIN,TOTAL 0.4 MG/DL (0.2-1.0); BLOOD UREA NITROGEN 7 MG/DL (7-18); CALCIUM LEVEL 8.9 MG/DL (8.5-10.1); CARBON DIOXIDE LEVEL 28 MEQ/L (21-32); CHLORIDE LEVEL 106 MEQ/L (98-107); CHOLESTEROL LEVEL 240 MG/DL (<200); CHOLESTEROL RISK RATIO 6.486 (<5); FREE T4 0.82 NG/DL (0.76-1.46); GLOMERULAR FILTRATION RATE > 60.0 (>60); GLUCOSE, FASTING 88 MG/DL (70-100); HDL CHOLESTEROL 37 MG/DL (>40); LDL CHOLESTEROL 172 MG/DL (<100); NON-HDL-C 203 MG/DL; POTASSIUM SERUM 4.6 MEQ/L (3.5-5.1); SODIUM LEVEL 138 MEQ/L (136-145); TOTAL PROTEIN 7.2 GM/DL (6.4-8.2); TRIGLYCERIDES LEVEL 153 MG/DL (<150)
[2022-07-25 13:08] LABS: HIV 1&2 SCREEN CENTAUR NEGATIVE (NEGATIVE)
== END ==
LOC: M PLALAB 09:23
PROVIDERS: ATTEND Nurse Practitioner
DX: Z00.00 Encounter for general adult medical examination without abnormal findings (principal)

== ENCOUNTER 2023-07-01 11:12 | Emergency (ER) | payer BC ==
[~2023-07-01] VITALS: Ht 154.9 cm; Wt 79.5 kg
[2023-07-01] MEDS ORDERED: PANT20TA6 PO (11:23)
[2023-07-01] MEDS ORDERED: FLUO10CA18 PO (11:23)
[2023-07-01 12:03] LABS: BASO # 0.1 10^3/uL (0.0-0.2); BASO % 0.4 % (0.0-1.0); EOS # 0.4 10^3/uL (0.0-0.5); EOS % 3.6 % (0.0-3.0); HEMATOCRIT 44.7 % (36.0-47.0); LYMPH # 2.8 10^3/uL (1.5-5.0); LYMPH % 24.4 % (24.0-44.0); MEAN CORPUSCULAR HEMOGLOBIN 31.9 pg (27.0-33.0); MEAN CORPUSCULAR HGB CONC 33.6 g/dl (32.0-36.5); MEAN CORPUSCULAR VOLUME 95.1 fl (80.0-96.0); MONO # 0.7 10^3/uL (0.0-0.8); MONO % 5.7 % (2.0-8.0); NEUTROPHILS # 7.6 10^3/uL (1.5-8.5); NEUTROPHILS % 65.6 % (36.0-66.0); PLATELET COUNT, AUTOMATED 266 10^3/uL (150-450); WHITE BLOOD COUNT 11.6 10^3/uL (4.0-10.0)
[2023-07-01 12:33] LABS: LIPASE 36 U/L (12-53)
[2023-07-01 12:34] LABS: HCG, SERUM QUALITATIVE NEGATIVE (NEGATIVE)
[2023-07-01 12:36] LABS: ALKALINE PHOSPHATASE 92 U/L (46-116); ALT/SGPT 49 U/L (7.0-40); AST/SGOT 23 U/L (<34); BILIRUBIN,DIRECT 0.2 MG/DL (<0.4); BILIRUBIN,TOTAL 0.7 MG/DL (0.3-1.2); BLOOD UREA NITROGEN 10 MG/DL (9-23); CALCIUM LEVEL 9.2 MG/DL (8.5-10.1); CARBON DIOXIDE LEVEL 26 MMOL/L (20-31); CHLORIDE LEVEL 107 MMOL/L (98-107); GLOMERULAR FILTRATION RATE > 60.0 (>60); GLUCOSE, FASTING 98 MG/DL (60-100); POTASSIUM SERUM 4.1 MMOL/L (3.5-5.1); SODIUM LEVEL 140 MMOL/L (136-145); TOTAL PROTEIN 7.3 G/DL (5.7-8.2)
[2023-07-01] MEDS ORDERED: KETOROLAC 30 MG/ML 1ML VIAL IV ONE (12:40)
[2023-07-01] MEDS ORDERED: ISOVUE-370 76% 100ML VIAL As Ordered ONE (12:49)
[2023-07-01] MEDS ORDERED: DICY-61 PO (14:51)
[2023-07-01] MEDS ORDERED: HYDR-3713 PO (14:51)
[2023-07-01 15:00] VITALS: BP 147/84; TEMP 98.2; O2SAT 100
== END 2023-07-01 15:03 | disposition home or self-care (01) ==
LOC: M ED 11:12
DX: R10.11 Right upper quadrant pain (principal); R11.0 Nausea; K21.9 Gastro-esophageal reflux disease without esophagitis; F17.200 Nicotine dependence, unspecified, uncomplicated; Z88.2 Allergy status to sulfonamides
CPT/HCPCS: 74177; 80048; 80076; 81001; 83690; 84703; 85025; 96374; 99284; J1885; Q9967

== ENCOUNTER → 2023-07-04 | Outpatient (CLI) | payer BC ==
[~2023-07-04] MED LIST changes: +DICY-61 PO; +FLUO10CA18 PO; +HYDR-3713 PO; +PANT20TA6 PO
== END ==
LOC: M PLAIMG 08:02
PROVIDERS: ATTEND Physician Assistant
DX: R07.81 Pleurodynia (principal)

== ENCOUNTER → 2024-10-13 | Outpatient (CLI) | payer BC ==
[~2024-10-13] MED LIST changes: +CEFD1CAP9 PO; -CEFD300C41 PO; +FLUO-290 PO; -FLUO10CA18 PO; +HYOS0.3723; -HYOS0.374
[2024-10-13 10:14] LABS: HEMOGLOBIN A1c 5.3 % (4.0-6.0)
[2024-10-13 10:30] LABS: ALBUMIN 3.8 G/DL (3.2-5.2); ALKALINE PHOSPHATASE 69 U/L (35-104); ALT/SGPT 46 U/L (7.0-40); AST/SGOT 22 U/L (<34); BILIRUBIN,TOTAL 0.5 MG/DL (0.3-1.2); BLOOD UREA NITROGEN 13 MG/DL (9-23); CALCIUM LEVEL 9.9 MG/DL (8.5-10.1); CARBON DIOXIDE LEVEL 27 MMOL/L (20-31); CHLORIDE LEVEL 105 MMOL/L (98-107); CHOLESTEROL LEVEL 251 MG/DL (<200); CHOLESTEROL RISK RATIO 6.33 (<5); CREATININE FOR GFR 0.73 MG/DL (0.55-1.30); GLOMERULAR FILTRATION RATE > 60.0 (>60); GLUCOSE, FASTING 97 MG/DL (60-100); HDL CHOLESTEROL 39.6 MG/DL (>40); LDL CHOLESTEROL 176.6 MG/DL (<100); NON-HDL-C 211.4 MG/DL; POTASSIUM SERUM 4.3 MMOL/L (3.5-5.1); SODIUM LEVEL 140 MMOL/L (136-145); TOTAL PROTEIN 7.4 G/DL (5.7-8.2); TRIGLYCERIDES LEVEL 174 MG/DL (<150)
== END ==
LOC: M PLALAB 08:33
PROVIDERS: ATTEND Physician Assistant
DX: F41.1 Generalized anxiety disorder (principal); E66.812 Obesity, class 2; Z68.35 Body mass index [BMI] 35.0-35.9, adult; Z13.1 Encounter for screening for diabetes mellitus; Z13.220 Encounter for screening for lipoid disorders

== ENCOUNTER → 2024-10-13 | Outpatient (CLI) | payer BC | LOC: M WHC 07:46 | PROVIDERS: ATTEND Physician Assistant | DX: Z12.31 Encounter for screening mammogram for malignant neoplasm of breast (principal); R92.333 Mammographic heterogeneous density, bilateral breasts; Z80.3 Family history of malignant neoplasm of breast; Z80.0 Family history of malignant neoplasm of digestive organs; Z80.8 Family history of malignant neoplasm of other organs or systems ==

== ENCOUNTER → 2024-11-08 | Outpatient (CLI) | payer BC | LOC: M WHC 12:50 | PROVIDERS: ATTEND Physician Assistant | DX: Z80.3 Family history of malignant neoplasm of breast (principal) ==

== ENCOUNTER → 2025-05-25 | Outpatient (CLI) | payer BC | LOC: M WHC 08:19 | PROVIDERS: ATTEND Physician Assistant | DX: R92.8 Other abnormal and inconclusive findings on diagnostic imaging of breast (principal) ==